=== PATIENT | male | born 1975 | race African-American/Black ===

== ENCOUNTER 2024-03-05 20:57 | Emergency (ER) | payer BC, OTHER ==
[~2024-03-05] VITALS: Ht 170.2 cm; Wt 61.2 kg
[2024-03-05 21:03] VITALS: TEMP 97.4
[2024-03-05] MEDS ORDERED: HYDROCODONE/APAP 5/325MG TABLET ONE (21:34)
[2024-03-05] MEDS: HYDROCODONE/APAP 5/325MG TABLET PO ONE (21:35)
[2024-03-05 23:54] VITALS: BP 134/70; O2SAT 99
== END 2024-03-06 01:40 | disposition home or self-care (01) ==
LOC: ER 21:00
DX: S82.842D Displaced bimalleolar fracture of left lower leg, subsequent encounter for closed fracture with routine healing (principal); S01.01XD Laceration without foreign body of scalp, subsequent encounter; Z48.02 Encounter for removal of sutures; X58.XXXD Exposure to other specified factors, subsequent encounter
CPT/HCPCS: 73590-TC; 73630-TC